=== PATIENT | female | born 1965 | race Caucasian/White ===

== ENCOUNTER → 2022-08-07 14:10 | Outpatient (BNVA) | payer BC, SELFPAY | PROVIDERS: PCP Internal Medicine; Visit Provider Psychiatry & Neurology Neurology | DX: G47.33 Obstructive sleep apnea (adult) (pediatric) (principal); F48.2 Pseudobulbar affect ==

== ENCOUNTER 2024-04-14 13:59 | Outpatient (AMB) | payer BC, SELFPAY ==
--- NOTE | 2024-04-14 14:17 | MHC.OFFVIS ---
Vital Signs 04/14/24 14:21 Height 5 ft 1 in Weight 196 lb BMI 37.0 BP 138/80 Blood Pressure Location Rt brachial Position Sitting Intake Visit Reasons: 5 mo f/u-Pseudubulbar Intake Note: Patient presents for 5 month follow up Allergies Seasonal Allergies Allergy (Mild, Verified 04/14/24 14:21) Nasal congestion Medication List - Last Reconciled 04/14/24 by Nancy Santos MD albuterol sulfate 90 mcg/actuation (ProAir RespiClick) 0 inhalations inhalation atorvastatin 10 mg PO DAILY citalopram 10 mg PO DAILY ergocalciferol (vitamin D2) (Vitamin D2) 1,250 mcg PO QWEEK famotidine 40 mg PO DAILY hydrochlorothiazide 50 mg PO DAILY ibuprofen 800 mg PO TID levothyroxine mcg PO lisinopril 10 mg PO DAILY naproxen 500 mg PO BID zolpidem 5 mg PO BEDTIME PRN HPI Comments Details: 58y/o female with Pseduobulbar affect and obstructive sleep apnea comes for follow up. she is on citalopram 10 mg qd and is helping her anxiety and her episodes of laughing. No episodes of vertigo. 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 she stopped using CPAP after COV inJuly 2021 . she feels she is sleeping better with it.she sleeps with head elevated which helps . she was unable to taper off zolpidem - 5mg qhs AHI 9 and oxygen fela 83 % PFSH Medical History Pseudobulbar affect Hypothyroid Hyperlipidemia HTN (hypertension) GERD (gastroesophageal reflux disease) Arthritis Surgical History H/O shoulder surgery No history of previous surgery Family History Father Lung cancer Mother Alzheimer disease Social History Household Members: Spouse Household Members Other:: Alcohol intake: current Alcohol intake frequency: does not drink Patient Tobacco Use Status: Never used Tobacco Physical Exam Vital Signs: Last Vital Signs BP 138/80 04/14/24 14:21 BMI result Body Mass Index 37.0 Const General: cooperative, healthy appearing and comfortable Nutritional Appearance: average body habitus Orientation/consciousness: patient oriented x3 HEENT Head: Yes normal to inspection and Yes normocephalic Throat: Yes other (mallampatti grade4) Eyes Pupils: Equal, round and reactive pupils present Neuro Other: severely decreased blink General: patient oriented x3, tone normal, moves all extremities and no focal motor deficits Cranial nerves: Yes CN's II-XII intact bilaterally, Yes Facial sensation intact/muscles of mastication intact, Yes Equal, round and reactive pupils present, Yes Bilaterally intact EOM present, Yes Nystagmus not present, Yes Normal facial strength present, Yes Midline tongue present, Yes Symmetric palate elevation present and Yes Ability to bilaterally elevate shoulders present Cognition (Neuro): normal cognition Gait exam (Neuro): Normal gait present Motor exam (neuro): 5/5 motor strength present throughout and Normal motor muscle tone present throughout Deep tendon reflexes (DTR's): Right triceps reflex intensity grade: 2+, Left triceps reflex intensity grade: 2+, Rt Biceps (C5, C6): 2+, Left biceps reflex intensity grade: 2+, Right brachioradialis reflex intensity grade: 2+, Left brachioradialis reflex intensity grade: 2+, Right patellar reflex intensity grade: 3+ and Left patellar reflex intensity grade: 3+ Coordination: [id number] test normal Assessment & Plan Assessment & Plan (1) Obstructive sleep apnea: Code(s): G47.33 - Obstructive sleep apnea (adult) (pediatric) Category: Medical (2) Pseudobulbar affect: Code(s): F48.2 - Pseudobulbar affect Category: Medical Plan Suggested position therapy and weight loss for CHAIPN discussed with PCP about vestibular therapy Continue citalopram 10mg qd Taper zolpidem Medications: Refilled citalopram 10 mg PO DAILY 90 tabs 6RF Coding Level of Care Code Est Pt Level 4 (37153) Diagnoses Obstructive sleep apnea G47.33 Pseudobulbar affect F48.2
[2024-04-14 14:21] VITALS: BP 138/80; BMI 37.0
== END 2024-04-14 14:49 | disposition home or self-care (01) ==
PROVIDERS: Visit Provider Psychiatry & Neurology Neurology
DX: G47.33 Obstructive sleep apnea (adult) (pediatric) (principal); F48.2 Pseudobulbar affect
CPT/HCPCS: 99214

== ENCOUNTER 2024-12-22 09:53 | Outpatient (AMB) | payer BC, SELFPAY ==
--- OUTSIDE RECORDS SUMMARY | 2024-07-08 05:20 | XMS_ITS ---
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 Name Role Phone LOC GALE DO Primary Care Provider Ramila Zapata Unavailable [phone] REASON FOR VISIT Annual NIKE ATHLETE Physical Encounters Encounter Location Date Provider Diagnosis [facility] [address] [place] [address] 07/08/2024 Ramila Mijares Plan Of Treatment Next Appt Details Provider Name:Ramila hollingsworth, 08/10/2025 09:20:00 AM, [address] [place] [address], [address], [place], [address], Progress Notes * HAIDER CAMILODOB:[birth year] (59 yo F)Acc No.[id number]:07/08/2024 PROGRESS NOTES Patient: Angle MONTGOMERYJULIÁN HAIDER Appointment Provider: Jose G Mijares M.D. :1965 A ge:59 Y S ex:Female Date:07/08/2024 Address:[address] [place], [place] [id number] Pcp:LOC GALE DO Subjective: * Chief Complaints: * 1 . Annual NIKE ATHLETE Physical. * Medical History: Objective: * Vitals: Assessment: Plan: * Treatment: * Images: Billing Information: * Visit Code: * Procedure Codes: * Electronic signature of Cyndee Mijares MD on 12/22/2024 at 10:52 AM EDT Sign off status: Pending * Appointment Provider: Jose G Mijares M.D. Date: 0 07/08/2024 Generated for Betsey wiley/Bryson/Trice on: 0 12/22/2024 10:52 AM EDT
[2024-12-22 09:53] VITALS: BP 100/64; PULSE 73; O2SAT 97
--- NOTE | 2024-12-22 09:53 | MHC.OFFVIS ---
Vital Signs 12/22/24 09:53 Height 5 ft 1 in BP 100/64 Blood Pressure Location Rt brachial Position Sitting Pulse 73 Pulse Source Pulse Oximeter Pulse Oximetry (%) 97 Oxygen Delivery Method Room Air Intake Visit Reasons: follow up Incident Response Consultant Required: No Accompanied by: Self / Same As Patient Allergies Seasonal Allergies Allergy (Mild, Verified 04/14/24 14:21) Nasal congestion HPI Comments Details: 59y/o female with Pseduobulbar affect and obstructive sleep apnea comes for follow up.she had 2 episodes of syncope last year - her PCP thought it was vasovagal . EEG was normal. MRI- rayus - i do not have a report . she had tilt tabel which wa spositive and hse was referred to cardiology. she is on citalopram 10 mg qd and is helping her anxiety and her episodes of laughing. No episodes of vertigo. 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 she stopped using CPAP after COVID inJuly 2021 . she feels she is sleeping better with it.she sleeps with head elevated which helps . she is still on zolpidem 5 mg qhs - 5 days a week and she is sleeping good AHI 9 and oxygen fela 83 % PFSH Medical History Pseudobulbar affect Hypothyroid Hyperlipidemia HTN (hypertension) GERD (gastroesophageal reflux disease) Arthritis Surgical History H/O shoulder surgery No history of previous surgery Family History Father Lung cancer Mother Alzheimer disease Social History Household Members: Spouse Household Members Other:: Alcohol intake: current Alcohol intake frequency: does not drink Patient Tobacco Use Status: Never used Tobacco Physical Exam Vital Signs: Last Vital Signs Pulse 73 12/22/24 09:53 BP 100/64 12/22/24 09:53 Pulse Ox 97 12/22/24 09:53 Oxygen Delivery Method Room Air 12/22/24 09:53 Const General: cooperative, healthy appearing and comfortable Nutritional Appearance: average body habitus Orientation/consciousness: patient oriented x3 HEENT Head: Yes normal to inspection and Yes normocephalic Throat: Yes other (mallampatti grade4) Eyes Pupils: Equal, round and reactive pupils present Neuro Other: severely decreased blink General: patient oriented x3, tone normal, moves all extremities and no focal motor deficits Cranial nerves: Yes CN's II-XII intact bilaterally, Yes Facial sensation intact/muscles of mastication intact, Yes Equal, round and reactive pupils present, Yes Bilaterally intact EOM present, Yes Nystagmus not present, Yes Normal facial strength present, Yes Midline tongue present, Yes Symmetric palate elevation present and Yes Ability to bilaterally elevate shoulders present Cognition (Neuro): normal cognition Gait exam (Neuro): Normal gait present Motor exam (neuro): 5/5 motor strength present throughout and Normal motor muscle tone present throughout Coordination: [id number] test normal Assessment & Plan Assessment & Plan (1) Obstructive sleep apnea: Code(s): G47.33 - Obstructive sleep apnea (adult) (pediatric) Category: Medical (2) Pseudobulbar affect: Code(s): F48.2 - Pseudobulbar affect Category: Medical Plan Suggested position therapy and weight loss for CHAPIN- cannot sleep on her sides because of shoulder pain Continue citalopram 10mg qd Taper zolpidem F/u cardiology she wants to retrial CPAP- she has all the supplies Coding Level of Care Code Est Pt Level 4 (02492) Complex EM visit Add On G2211 Diagnoses Obstructive sleep apnea G47.33 Pseudobulbar affect F48.2
--- OUTSIDE RECORDS SUMMARY | 2024-12-22 10:52 | XMS_ITS | Clinical Summary ---
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 3 Active cyclobenzaprine (FLEXERIL) 10 mg tablet Take 1 tablet (10 mg total) by mouth 2 (two) times a day if needed for muscle spasms. # 30 tablet, Refills 0, Maintenance, for spasm, 06/08/16 18:49:09 7 Active albuterol 2.5 mg /3 mL (0.083 %) nebulizer solution Inhale 3 mL (2.5 mg total) by mouth every 6 (six) hours if needed. 3 mLas needed Active atorvastatin (LIPITOR) 10 mg tablet Take 1 tablet (10 mg total) by mouth 1 (one) time each day. Active benzonatate (TESSALON) 200 mg capsule Take 1 capsule (200 mg total) by mouth 3 (three) times a day if needed. Active citalopram (CeleXA) 10 mg tablet Take 1 tablet (10 mg total) by mouth 1 (one) time each day. Active doxycycline (VIBRAMYCIN) 100 mg capsule Take 1 capsule (100 mg total) by mouth 2 (two) times a day. Active famotidine (PEPCID) 40 mg tablet Take 1 tablet (40 mg total) by mouth 1 (one) time each day. Active fluticasone HFA (FLOVENT HFA) 110 mcg/actuation inhaler Inhale 1 puff by mouth 2 (two) times a day. Active hydroCHLOROthia zide (HYDRODIURIL) 50 mg tablet Take 1 tablet (50 mg total) by mouth 1 (one) time each day in the morning. Active ibuprofen (ADVIL,MOTRIN) 800 mg tablet Take 1 tablet (800 mg total) by mouth 3 (three) times a day. With food or milk Active levothyroxine sodium (TIROSINT) 75 mcg capsule Take 1 capsule (75 mcg total) by mouth 2 (two) times a week. Take 2 tablets by mouth Every and Sunday on a empty stomach , Sunday through Sunday Take 1 tablet on a empty stomach Active lisinopriL (PRINIVIL,ZESTR IL) 10 mg tablet Take 1 tablet (10 mg total) by mouth 1 (one) time each day. Active zolpidem (AMBIEN) 10 mg tablet Take 1 tablet (10 mg total) by mouth at bedtime as needed. Max Daily Amount: 10 mg Active Social History Tobacco Use Types Packs/Day Years Used Date Smoking Tobacco: Never Assessed Comments Unknown Sex and Gender Information Value Date Recorded Sex Assigned at Not on file Legal Sex Female 12:53 PM EST Gender Identity Not on file Sexual Orientation Not on file Plan of Treatment Upcoming Encounters Date Type Department Care Team ([facility] Contact Info) Description 01/13/2025 9:00 AM EDT Ancillary Procedure [facility] [address] [facility] [address] [place] [address] Health Maintenance Due Date Last Done Comments Breast Cancer Screening 1965 DTaP,Tdap,and Td Vaccines (1 - Tdap) 1985 Hepatitis B Vaccines (1 of 3 - 19+ 3-dose series) 1985 Cervical Cancer Screening: P ap Smear 1987 Pneumococcal Vaccine: 50+ Years (1 of 1 - PCV) 2016 Zoster Vaccines (1 of 2) 2016 HIV Screening 05/10/2022 Hepatitis C Screening 05/10/2022 Social Influencers of Health Screening 05/10/2022 COVID-19 Vaccine (4 - 4-2 5 season) 2024 06/08/2021, 10/26/2020, 09/28/2020 Depression Screening 05/28/2024 Influenza Vaccine (#1) 2025 Hypertension/CHF/CAD Annual BMP Blood Test 10/01/2025 10/01/2024, 04/29/2024 Cholesterol Screening (Lipid Panel) 10/01/2029 10/01/2024, 04/29/2024 Colorectal Cancer Screening: Colonoscopy 08/10/2032 08/10/2022 HIB Vaccines Aged Out No longer eligi ble based on patient's age to complete this topic HPV Vaccines Aged Out No longer eligi ble based on patient's age to complete this topic Hepatitis A Vaccines Aged Out No long er eligible based on patient's age to complete this topic IPV Vaccines Aged Out No longer eligi ble based on patient's age to complete this topic MMR Vaccines Aged Out No longer eligi ble based on patient's age to complete this topic Meningococcal ACWY Vaccine Aged Out N o longer eligible based on patient's age to complete this topic Meningococcal B Vaccine Aged Out No l onger eligible based on patient's age to complete this topic RSV Immunization Patients Under 20 months Aged Out No longer eligible b ased on patient's age to complete this topic Varicella Vaccines Aged Out No longer eligible based on patient's age to complete this topic Procedures Procedure Name Priority Date/Time Associated Diagnosis Comments THYROID STIMULATING HORMONE Routine 10/01/2024 3:00 PM EDT HLD (hyperlipidemia) HTN (hypertension) Myxedema heart disease CREATINE KINASE Routine 10/01/2024 3:00 PM EDT HLD (hyperlipidemia) HTN (hypertension) Myxedema heart disease ASPARTATE AMINOTRANSFERASE Routine 10/01/2024 3:00 PM EDT HLD (hyperlipidemia) HTN (hypertension) Myxedema heart disease BASIC METABOLIC PANEL Routine 10/01/2024 3:00 PM EDT HLD (hyperlipidemia) HTN (hypertension) Myxedema heart disease ALANINE AMINOTRANSFERASE Routine 025 3:00 PM EDT HLD (hyperlipidemia) HTN (hypertension) Myxedema heart disease LIPID PANEL WITH REFLEX TO DIRECT LDL Routine 10/01/2024 3:00 PM EDT HLD (hyperlipidemia) HTN (hypertension) Myxedema heart disease HM COLONOSCOPY Routine 08/10/2022 from Last 3 Months or Most Recently Relevant to Health Maintenance Results * (ABNORMAL) Lipid panel with reflex to direct LDL (10/01/2024 3:00 PM EDT) Cholesterol 142 0 - 200 mg/dL LAB CHEMISTRY METHOD 10/01/2024 8:31 PM EDT [facility] Triglycerides 248(H) 0 - 150 mg/dL LAB CHEMISTRY METHOD 10/01/2024 8:31 PM EDT [facility] HDL 38(L) >=40 mg/dL LAB CHEMISTRY METHOD 10/01/2024 8:31 PM EDT [facility] LDL Calculated 54 0 - 100 mg/dL LAB CHEMISTRY METHOD 10/01/2024 8:31 PM EDT [facility] VLDL Cholesterol Ant 49.6 mg/dL LAB CHEMISTRY METHOD 10/01/2024 8:31 PM EDT [facility] Non HDL Chol. (LDL+VLDL) 104 <145 mg/dL LAB CHEMISTRY METHOD 10/01/2024 8:31 PM EDT [facility] Chol/HDL Ratio 3.7 0.0 - 4.4 LAB CHEMISTRY METHOD 10/01/2024 8:31 PM EDT [facility] Blood Venous blood specimen / Unknown Venipuncture / Unknown 10/01/2024 3:00 PM EDT 10/01/2024 3:01 PM EDT us Lozoya Hartley CUSTOMER CONSULTANT LAB BLOOD ORDERABLES Final Resul t [facility] [address] [place] [address], [place] [phone] * Alanine aminotransferase (10/01/2024 3:00 PM EDT) ALT (SGPT) 28 10 - 60 unit/L LAB CHEMISTRY METHOD 10/01/2024 8:31 PM EDT [facility] Blood Venous blood specimen / Unknown Venipuncture / Unknown 10/01/2024 3:00 PM EDT 10/01/2024 3:01 PM EDT us Lozoya Hartley CUSTOMER CONSULTANT LAB BLOOD ORDERABLES Final Resul t Performing Organization Address City/[facility]/ZIP Co de Phone Number [facility] [address] [place] [address], [place] [phone] * Aspartate aminotransferase (10/01/2024 3:00 PM EDT) AST (SGOT) 20 10 - 42 unit/L LAB CHEMISTRY METHOD 10/01/2024 8:23 PM EDT [facility] Blood Venous blood specimen / Unknown Venipuncture / Unknown 10/01/2024 3:00 PM EDT 10/01/2024 3:01 PM EDT us Devora Hartley LAB BLOOD ORDERABLES Final Resul t Performing Organization Address City/[facility]/ZIP Co de Phone Number [facility] [address] [place] [address], [place] [phone] * Thyroid stimulating hormone (10/01/2024 3:00 PM EDT) TSH 1.11 0.40 - 4.00 mcIU/mL LAB CHEMISTRY METHOD 10/01/2024 9:02 PM EDT [facility] Blood Venous blood specimen / Unknown Venipuncture / Unknown 10/01/2024 3:00 PM EDT 10/01/2024 3:01 PM EDT us Lozoya Hartley CUSTOMER CONSULTANT LAB BLOOD ORDERABLES Final Resul t Performing Organization Address [facility]/ZIP Co de Phone Number [facility] [address] [place] [address], * Creatine kinase (10/01/2024 3:00 PM EDT) Total CK 152 22 - 269 unit/L LAB CHEMISTRY METHOD 10/01/2024 8:31 PM EDT [facility] Blood Venous blood specimen / Unknown Venipuncture / Unknown 10/01/2024 3:00 PM EDT 10/01/2024 3:01 PM EDT us Lozoya Hartley CUSTOMER CONSULTANT LAB BLOOD ORDERABLES Final Resul t Performing Organization Address [facility] Co de Phone Number [facility] [address] [place] [address], [place] [phone] * (ABNORMAL) Basic metabolic panel (10/01/2024 3:00 PM EDT) [facility] Sodium 133 133 - 145 mmol/L LAB CHEMISTRY METHOD 10/01/2024 8:23 PM EDT [facility] Potassium 3.8 3.5 - 5.5 mmol/L LAB CHEMISTRY METHOD 10/01/2024 8:23 PM [facility] Chloride 101 96 - 110 mmol/L LAB CHEMISTRY METHOD 10/01/2024 8:23 PM [facility] CO2 26 21 - 32 mmol/L LAB CHEMISTRY METHOD 10/01/2024 8:23 PM T [facility] Anion Gap 6 3 - 11 LAB CHEMISTRY METHOD 10/01/2024 8:23 PM [facility] Glucose 101(H) 70 - 100 mg/dL LAB CHEMISTRY METHOD 10/01/2024 8:23 PM [facility] BUN 15 5 - 25 mg/dL LAB CHEMISTRY METHOD 10/01/2024 8:23 PM [facility] Creatinine 0.82 0.50 - 1.10 mg/dL LAB CHEMISTRY METHOD 10/01/2024 8:23 PM EDT [facility] eGFR 83 >=60 mL/min/1. 73m2 LAB CHEMISTRY METHOD 10/01/2024 8:23 PM EDT [facility] Comment:Calculation based on the Chronic Kidney Disease Epidemiology Collaboration (CKD-EPI) equation refit without adjustment for race. BUN/Creatinine Ratio 18.3 LAB CHEMISTRY METHOD 10/01/2024 8:23 PM EDT [facility] Calcium 9.6 8.5 - 10.5 mg/dL LAB CHEMISTRY METHOD 10/01/2024 8:23 PM EDT [facility] Blood Venous blood specimen / Unknown Venipuncture / Unknown 10/01/2024 3:00 PM EDT 10/01/2024 3:01 PM EDT us Lozoya Hartley CUSTOMER CONSULTANT LAB BLOOD ORDERABLES Final Resul t [facility] [address] [place] [address], * Colonoscopy (08/10/2022) Colonoscopy No interpretation , abstracted Anatomical Region Laterality Modality Other Historical Provider MD HEALTH MAINTENANCE Final Result from Last 3 Months or Most Recently Relevant to Health Maintenance Insurance [facility] [id number] [facility] Care Teams Slip Laster Relationship Specialty Start Date End Date Ehsan Lopez DO [address] [place] [address] [place] [id number] PCP - General Internal Medicine 04/29/24
== END 2024-12-22 10:31 | disposition home or self-care (01) ==
LOC: HO.HSMS 09:53
PROVIDERS: PCP Internal Medicine; Visit Provider Psychiatry & Neurology Neurology
DX: G47.33 Obstructive sleep apnea (adult) (pediatric) (principal); F48.2 Pseudobulbar affect
CPT/HCPCS: 99214